=== PATIENT | female | born 1955 | race Two or more races ===

== ENCOUNTER 2017-03-14 16:47 | Outpatient (CLI) | payer OTHER ==
[~2017-03-14 16:47] MED LIST: NO TOMA MEDICAMENTO
== END 2017-03-14 16:56 | disposition home or self-care (01) ==
LOC: LAB 16:47
DX: E78.2 Mixed hyperlipidemia (principal); E03.9 Hypothyroidism, unspecified

== ENCOUNTER 2017-06-25 13:59 | Outpatient (CLI) | payer OTHER | END 2017-06-25 14:07 | disposition home or self-care (01) | LOC: MAMO-SONO 13:59 | DX: Z12.31 Encounter for screening mammogram for malignant neoplasm of breast (principal) ==

== ENCOUNTER 2019-09-11 13:06 | Outpatient (CLI) | payer OTHER | END 2019-09-11 15:00 | disposition home or self-care (01) | LOC: LAB 13:06 | PROVIDERS: ATTEND Family Medicine Adult Medicine | DX: I10 Essential (primary) hypertension (principal); R73.01 Impaired fasting glucose; E78.2 Mixed hyperlipidemia; M79.7 Fibromyalgia; M05.89 Other rheumatoid arthritis with rheumatoid factor of multiple sites; E03.8 Other specified hypothyroidism ==

== ENCOUNTER 2019-10-01 13:30 | Outpatient (CLI) | payer OTHER | END 2019-10-01 13:52 | disposition home or self-care (01) | LOC: NUCLEAR 13:30 | PROVIDERS: ATTEND Family Medicine Adult Medicine | DX: M81.0 Age-related osteoporosis without current pathological fracture (principal) ==

== ENCOUNTER 2020-03-01 11:13 | Outpatient (CLI) | payer OTHER | END 2020-03-01 11:22 | disposition home or self-care (01) | LOC: LAB 11:13 | PROVIDERS: ATTEND Internal Medicine | DX: M15.0 Primary generalized (osteo)arthritis (principal); E11.65 Type 2 diabetes mellitus with hyperglycemia; I10 Essential (primary) hypertension; B96.81 Helicobacter pylori [H. pylori] as the cause of diseases classified elsewhere; N39.0 Urinary tract infection, site not specified ==

== ENCOUNTER → 2020-03-28 | Outpatient (CLI) | payer OTHER | END | disposition home or self-care (01) | LOC: RAD 11:51 | PROVIDERS: ATTEND Internal Medicine | DX: R10.84 Generalized abdominal pain (principal) ==

== ENCOUNTER 2020-04-22 08:27 | Outpatient (CLI) | payer OTHER | END 2020-04-22 08:35 | disposition home or self-care (01) | LOC: SONOGRAMA 08:27 → MAMO-SONO 04-25 08:15 | PROVIDERS: ATTEND Internal Medicine | DX: R10.9 Unspecified abdominal pain (principal) ==

== ENCOUNTER → 2020-11-14 | Emergency (ER) | payer OTHER ==
[~2020-11-14] VITALS: Ht 162.6 cm; Wt 77.1 kg
[~2020-11-14] MED LIST changes: +MECLIZINE HCL25 M1 PO; +MEDROLPACK PO
== END | disposition home or self-care (01) ==
LOC: ER 16:23
DX: R20.0 Anesthesia of skin (principal); R42 Dizziness and giddiness

== ENCOUNTER 2022-03-29 14:48 | Outpatient (CLI) | payer OTHER | END 2022-03-29 14:55 | disposition home or self-care (01) | LOC: LAB 14:48 | DX: Z00.00 Encounter for general adult medical examination without abnormal findings (principal) ==

== ENCOUNTER 2022-04-04 14:37 | Outpatient (CLI) | payer OTHER | END 2022-04-04 14:52 | disposition home or self-care (01) | LOC: MAMO-SONO 14:37 | PROVIDERS: ATTEND Plastic Surgery | DX: N64.89 Other specified disorders of breast (principal); N62 Hypertrophy of breast ==

== ENCOUNTER → 2023-04-04 12:05 | Outpatient (CLI) | payer OTHER ==
[2023-04-04 12:46] LABS: HEMATOCRIT 38.3 % (36.0-45.00); HEMOGLOBIN 12.8 g/dL (12.0-15.00); MEAN CELL VOLUME 88.3 fL (80.00-100.00); MEAN CORPUSCULAR HEMOGLOBIN 29.6 pg (27.00-32.0); MEAN CORPUSCULAR HGB CONC 33.6 g/dl (32.0-36.0); PLATELET COUNT 281 K/uL (150-450); RED BLOOD COUNT 4.33 M/uL (4.00-6.00); RED CELL DISTRIBUTION WIDTH 13.5 % (11.5-14.5)
[2023-04-04 13:45] LABS: BILIRUBIN TOTAL 0.5 mg/dL (0.3-1.2); CALCIUM 9.6 mg/dL (8.5-10.1); CHOL HDL RATIO 2.7 (0-5.0); CREATININE SERUM 1.13 mg/dL (0.55-1.02); GFR 48.32; GLOBULINA 3.4 G/DL (2.4-3.5); POTASSIUM 4.32 mEq/L (3.5-5.1); T4 TOTAL 9.99 UG/DL (4.8-13.9); TOTAL PROTEIN 7.4 gm/dL (6.4-8.2); TSH 1.15 uIU/mL (0.358-3.74)
[2023-04-04 14:06] LABS: T3 TOTAL 1.02 ng/ml (0.846-2.02); VITAMIN D3 25 HYDROXY 77.56 ng/ml (30-120)
[2023-04-04 15:52] LABS: URINE APPEARANCE Clear; URINE BILIRRUBIN Negative (NEGATIVE); URINE BLOOD Negative; URINE COLOR Yellow; URINE GLUCOSE Negative (NEGATIVE); URINE LEUKOCYTE Negative; URINE NITRATE Negative; URINE PROTEIN Negative (NEGATIVE); URINE UROBILINOGEN 0.2 E.U./dl
[2023-04-04 15:55] LABS: URINE BACTERIA 13.8 uL (0.0-1933); URINE RBC 4.5 uL (0.0-20.8)
[2023-04-04 16:01] LABS: URINE EPITHELIAL CELLS 0.9 uL (0.0-38.8); URINE WBC 0.3 uL (0.0-23.2)
== END | disposition home or self-care (01) ==
LOC: LAB 12:05
PROVIDERS: ATTEND Internal Medicine
DX: I10 Essential (primary) hypertension (principal); E06.9 Thyroiditis, unspecified; E78.5 Hyperlipidemia, unspecified; N39.0 Urinary tract infection, site not specified; E55.9 Vitamin D deficiency, unspecified

== ENCOUNTER 2023-04-04 13:23 | Outpatient (CLI) | payer OTHER | END 2023-04-04 13:32 | disposition home or self-care (01) | LOC: MRI 13:23 | PROVIDERS: ATTEND Internal Medicine | DX: N64.0 Fissure and fistula of nipple (principal); Z12.31 Encounter for screening mammogram for malignant neoplasm of breast; M25.562 Pain in left knee | CPT/HCPCS: 73718 ==

== ENCOUNTER → 2023-04-16 15:09 | Outpatient (CLI) | payer OTHER ==
[2023-04-16 15:42] LABS: ob POSITIVE (NEGATIVE)
== END | disposition home or self-care (01) ==
LOC: LAB 15:09
PROVIDERS: ATTEND Internal Medicine
DX: I10 Essential (primary) hypertension (principal); E06.9 Thyroiditis, unspecified; E78.9 Disorder of lipoprotein metabolism, unspecified; N39.0 Urinary tract infection, site not specified; E50 Vitamin A deficiency

== ENCOUNTER 2023-04-19 12:28 | Outpatient (CLI) | payer OTHER | END 2023-04-19 12:29 | disposition home or self-care (01) | LOC: NUCLEAR 12:28 | PROVIDERS: ATTEND Internal Medicine | DX: M81.0 Age-related osteoporosis without current pathological fracture (principal) ==

== ENCOUNTER 2023-04-26 12:48 | Outpatient (CLI) | payer OTHER | END 2023-04-26 12:51 | disposition home or self-care (01) | LOC: SONOGRAMA 12:48 | PROVIDERS: ATTEND Internal Medicine | DX: N31.9 Neuromuscular dysfunction of bladder, unspecified (principal); N10 Acute pyelonephritis ==

== ENCOUNTER 2023-06-03 14:24 | Outpatient (CLI) | payer OTHER | END 2023-06-03 14:28 | disposition home or self-care (01) | LOC: RAD 14:24 | PROVIDERS: ATTEND Internal Medicine | DX: M54.40 Lumbago with sciatica, unspecified side (principal); R10.2 Pelvic and perineal pain ==

== ENCOUNTER 2024-05-22 11:21 | Outpatient (CLI) | payer OTHER | END 2024-05-22 11:23 | disposition home or self-care (01) | LOC: MRI 11:21 | PROVIDERS: ATTEND Internal Medicine | DX: M25.561 Pain in right knee (principal); R92.8 Other abnormal and inconclusive findings on diagnostic imaging of breast; Z12.31 Encounter for screening mammogram for malignant neoplasm of breast | CPT/HCPCS: 73721 ==

== ENCOUNTER 2024-07-09 11:42 | Outpatient (CLI) | payer OTHER | END 2024-07-09 11:44 | disposition home or self-care (01) | LOC: MRI 11:42 | DX: M54.17 Radiculopathy, lumbosacral region (principal) | CPT/HCPCS: 72148 ==

== ENCOUNTER 2024-09-03 12:26 | Outpatient (CLI) | payer OTHER | END 2024-09-03 12:32 | disposition home or self-care (01) | LOC: MRI 12:26 | DX: M17.11 Unilateral primary osteoarthritis, right knee (principal); M17.12 Unilateral primary osteoarthritis, left knee; M54.12 Radiculopathy, cervical region | CPT/HCPCS: 72141 ==

== ENCOUNTER 2024-12-24 09:16 | Outpatient (CLI) | payer OTHER | END 2024-12-24 09:18 | disposition home or self-care (01) | LOC: TOM 09:16 | PROVIDERS: ATTEND Internal Medicine | DX: R10.20 Pelvic and perineal pain unspecified side (principal) | CPT/HCPCS: 74177; Q9965 ==

== ENCOUNTER 2024-12-31 12:28 | Outpatient (CLI) | payer OTHER | END 2024-12-31 12:34 | disposition home or self-care (01) | LOC: SONOGRAMA 12:28 | PROVIDERS: ATTEND Internal Medicine | DX: R19.09 Other intra-abdominal and pelvic swelling, mass and lump (principal) ==

== ENCOUNTER 2024-12-31 14:24 | Outpatient (CLI) | payer OTHER ==
[2024-12-31 15:56] LABS: LDH 207 U/L (84-246)
[2025-01-02 10:11] LABS: CA 125 7.8 U/mL (0.0-38.1); CA 19-9 < 2 U/mL (0-35)
== END 2024-12-31 15:05 | disposition home or self-care (01) ==
LOC: LAB 14:24
PROVIDERS: ATTEND Internal Medicine
DX: R97.8 Other abnormal tumor markers (principal); D64.9 Anemia, unspecified; R10.9 Unspecified abdominal pain